=== PATIENT | female | born 1965 | race Caucasian/White ===

== ENCOUNTER 2017-06-01 20:20 | Emergency (ER) | payer OTHER ==
[~2017-06-01] VITALS: Ht 170.2 cm; Wt 85.9 kg
[2017-06-01 20:22] VITALS: BP 137/87; PULSE 74; RESP 16; O2SAT 100
--- NOTE | 2017-06-01 20:48 | ED.REPORT ---
HPI-Chest Pain 40 and Over Date of Service Jun 01, 2017 ED Provider: Archie Taylor MD Pt is a healthy 52 year old female presenting to the ED complaining of sharp pain with inspiration in left lateral lower ribs onset 1.5 hours ago when she was cleaning the kitchen. Denies recent cough, or any other symptoms at this time. Pain is exacerbated by leaning forward, bending and twisting. She denies any previous similar symptoms, hx of blood clots, cardiac history, recent surgery, or recent long car rides. She is not on estrogen. She has no history of coronary artery disease. She denies shortness of breath. Nursing Notes Stated Complaint: SHORTNESS OF BREATH/LEFT SIDED CHEST/RIB PAIN Chief Complaint: Chest Pain Nursing Notes Reviewed: Yes Allergies: Coded Allergies: iodine (Unverified Allergy, Unknown, 06/01/17) Uncoded Allergies: No Known Allergies (Allergy, Unknown, 11/12/04) General Time Seen by MD: 20:47 Chief Complaint Other (Rib pain) Hx Obtained From: Patient Arrived By: Walk-in Sudden in Onset?: No Onset Occurred: 1 - 4 hours ago Symptom Duration: Since onset Quality: Painful, Sharp Severity: Current: Mild Severity: Maximum: Moderate Recent Healthcare: No recent doctor visit, No recent hospitalization Similar Sx Previous: No Past Medical History Past Medical History denies Past Surgical History denies Family History Family hx of heart problems Smoking History Unknown if Ever Smoker Ambulatory Status Independent Review of Systems Review of Systems Note: Pain with inspiration Constitutional: Denies: Fever Respiratory: Denies: Non-productive cough, Shortness of breath, Wheezing GI: Reports: Abdominal pain (Rib pain), Denies: Vomiting Complete sys rev & neg: except as marked. Physical Exam Initial Vital Signs Vital Signs (First) Date Time Temp Pulse Resp B/P Pulse Ox O2 Delivery O2 Flow Rate FiO2 06/01/17 20:22 36.6 74 16 137/87 100 Room Air Initial VS: Reviewed Head / Eyes: Atraumatic, Normocephalic, PERRL ENT: Mucous membranes moist, Conjunctiva normal, No scleral icterus Back: No CVA tenderness Extremities: Vascular intact, Neuro intact, No swelling, No tenderness Skin: Warm, Dry, No cyanosis Neurologic: Alert, Oriented, Nonfocal Psychiatric: Mood/affect normal, Behavior normal, Normal thought content General/Constitutional: Awake, Alert, No acute distress Respiratory / Chest: Breath sounds NL, Breath sounds = bilat, No respiratory distress, No rales, No rhonchi, No wheezing, No stridor, No chest tenderness Cardiovascular: Heart rate NL, Regular rhythm, Heart sounds NL, No murmurs, Peripheral circulation NL, Pulses = bilaterally, No gross BP differential Abdomen: Atraumatic, Soft, Non-tender, No guarding, No rebound Pain not reproducible with palpation. Lower Extremity / Pelvis / MS: Atraumatic, Inspection NL, Full range of motion , No swelling, Non-tender No calf tenderness or swelling Interpretation & Diagnostics Lab Results Interpretation Result Diagram: 06/01/17203906/01/172039 Test 06/01/17 20:40 White Blood Count 9.1th/mm3 (3.8-10.1) Red Blood Count 4.22mil/mm3 (3.90-5.20) Hemoglobin 12.8g/dL (12.0-15.6) Hematocrit 38.9% (35.0-46.0) Mean Corpuscular Volume 92.2fL (81-100) Mean Corpuscular Hemoglobin 30.3pg (27.0-35.0) Mean Corpuscular Hemoglobin Concent 32.9% (32.0-37.0) Red Cell Distribution Width 12.8% (12.3-15.4) Platelet Count 240bil/L (150-400) Neutrophils (%) (Auto) 62.6% (40-74) Lymphocytes (%) (Auto) 23.8% (14-46) Monocytes (%) (Auto) 10.6% (4-12) Eosinophils (%) (Auto) 2.5% (0-5) Basophils (%) (Auto) 0.4% (0-3) Sodium Level 139mEq/L (134-144) Potassium Level 3.8mEq/L (3.5-5.2) Chloride Level 102mEq/L (97-108) Carbon Dioxide Level 26mmol/L (18-29) Blood Urea Nitrogen 27mg/dL (6-24) Creatinine 0.79mg/dL (0.57-1.00) Estimat Glomerular Filtration Rate 109mL/min (>59) Glucose Level 110mg/dL (60-99) Calcium Level 9.3mg/dL (8.5-10.1) Magnesium Level 2.1mg/dL (1.6-2.6) Total Bilirubin 0.5mg/dL (0.0-1.2) Aspartate Amino Transf (AST/SGOT) 25U/L (0-50) Alanine Aminotransferase (ALT/SGPT) 24U/L (0-32) Alkaline Phosphatase 55U/L (25-150) Troponin T 0.010ug/L (0.0-0.011) Total Protein 6.8g/dL (6.4-8.4) Albumin 4.3g/dL (3.4-5.0) Hold Schneider Top Tube Received (Received) ECG Interpretation ECG Interpretation: Normal axis. Normal intervals. T wave inversion v1 and v2. No ST segment elevation. No prior available for comparison. Time: 20:36 Interpreted by: ED physician Normal ECG Interpretation: Normal rate (64), Normal sinus rhythm X-Ray Chest Interpretation Chest Xray Interpretation: Negative. Interpretation / Wet Read by: Wet read ED physician Re-Eval/Medical Decision Med Decision/Clinical Course Pt is a healthy 52 year old female presenting to the ED complaining of sharp pain with inspiration in left lateral lower ribs onset 1.5 hours ago when she was cleaning the kitchen. Denies recent cough, or any other symptoms at this time. Pain is exacerbated by leaning forward, bending and twisting. She denies any previous similar symptoms, hx of blood clots, cardiac history, recent surgery, or recent long car rides. She is not on estrogen. She has no history of coronary artery disease. She denies shortness of breath. Here in the emergency department the patient is afebrile and hemodynamically stable with examination as above. Patient's pain is reproducible with movement, bending and twisting. Chest x-ray was interpreted as possible pneumonia however there are no clinical symptoms suggestive thereof. There is no evidence of pneumothorax. EKG was obtained and interpreted by myself as documented above. Laboratory studies notable as below: CBC unremarkable. CMP unremarkable. Trop neg. Patient reports that she feels better and would like to be discharged. Initial screening EKG and troponin negative. Overall presentation consistent with acute coronary syndrome. Patient declines serial troponins as she wants to leave. Vision is low risk for pulmonary embolism without any tachycardia, tachypnea, shortness of breath or physical exam findings of DVT. I do not feel that workup for pulmonary embolism is indicated. Patient desires to be discharged I recommended she follow up with her primary care physician. She will take Tylenol for pain and flank ice packs. Prior to discharge follow-up and return precautions were reviewed in detail with the patient who verbalized understanding and agreement with the plan. The patient was discharged in stable condition. Time of Eval: 22:06 Patient Status: Condition improved Re-Evaluation/Progress Note: Discussed plan for discharge. Pt understands and agrees with plan. Counseled Regarding: Diagnosis, Lab results, Need for follow-up, When/why to return to ED Discharge & Departure Primary Impression: Chest pain Chest pain type: unspecified Qualified Code: R07.9 - Chest pain, unspecified Additional Impression: Chest wall pain Disposition: Home Discharge Condition All VS Reviewed: Yes Condition: Improved Additional Instructions: Thank you for seeking care at the emergency room. It is difficult for us to make definitive diagnoses in the ED but we believe that your chest pain is musculoskeletal. Our primary goal today in the ED was to evaluate you for any life-threatening conditions. Your evaluation was reassuring. You should follow-up with your primary doctor in the next week. You should return to the ED immediately if you develop any worsening chest pain , fevers, vomiting, cough, shortness of breath, lightheadedness, weakness or any other concerning signs or symptoms. Thank you for letting us partake in your care today. Referrals: Isabel Alfaro MD (PCP) Rosa Maria Attestation Portions of this note were transcribed by Tatyana Meléndez. I, Dr. Taylor personally performed the history, physical exam and medical decision-making; I reviewed and confirmed the accuracy of the information in the transcribed note. Signed by: Rosa Maria Lomas, 06/01/2017 at 2205. copies to: Isabel Alfaro MD, Beck O MD Jun 01, 2017 20:48 TATYANA MELÉNDEZ Jun 01, 2017 20:57
[2017-06-01 20:54] LABS: BASOPHILS % (AUTO) 0.4 % (0-3); EOSINOPHILS % (AUTO) 2.5 % (0-5); MONOCYTES % (AUTO) 10.6 % (4-12); Mean Corpuscular Hemoglobin 30.3 pg (27.0-35.0); Mean Corpuscular Volume 92.2 fL (81-100); NEUTROPHILS % (AUTO) 62.6 % (40-74); Platelet Count 240 bil/L (150-400)
[2017-06-01 21:22] LABS: TROPONIN T 0.01 ug/L (0.0-0.011)
[2017-06-01 21:34] LABS: Magnesium 2.1 mg/dL (1.6-2.6)
[2017-06-01 22:19] VITALS: BP 127/87; PULSE 59; RESP 20; O2SAT 98
[2017-06-01 22:21] VITALS: BP 127/87; PULSE 59; RESP 20; O2SAT 98
--- NOTE | 2017-06-02 11:17 | DRSVH ---
PROCEDURE: X-RAY CHEST ONE VIEW, PORTABLE ([id number]) INDICATIONS: CHEST PAIN TECHNIQUE: One view of the chest was acquired. COMPARISON: None. FINDINGS: Surgical changes and devices: None. Lungs and pleura: No pleural effusions or pneumothorax. Bibasilar left greater than right atelectasi s or early infiltrate. Otherwise the lungs are clear. Mediastinum: Mediastinal contours appear normal. Heart size is normal. Bones and chest wall: No suspicious bony lesions. Overlying soft tissues appear unremarkable. IMPRESSION: Bibasilar left greater than right atelectasis or infiltrate. Otherwise the lungs are cl ear. Dictated by: Kwame De Dios M.D. on 06/01/2017 at 21:08 Approved by: Kwame De Dios M.D. on 06/01/2017 at 21:08
== END 2017-06-01 22:21 | disposition home or self-care (01) ==
LOC: SED 20:20
DX: R07.89 Other chest pain (principal); Z91.048 Other nonmedicinal substance allergy status; R10.9 Unspecified abdominal pain